=== PATIENT | male | born 1945 | race Caucasian/White ===

== ENCOUNTER 2020-06-11 03:24 | Inpatient (IN) ==
[2020-06-11] MEDS ORDERED: MIDAZOLAM HCL 5 MG/ML 1 ML VIAL IV STA (04:03)
[2020-06-11] MEDS ORDERED: MIDAZOLAM HCL 1 MG/ML 2ML VIAL ONE ×3 (04:09→09:42)
--- NOTE | 2020-06-11 04:12 | Emergency Department Note ---
Impression & Plan Cauda equina syndrome ED Provider Note NAME: JUSTINE PARRISH AGE: 74 SEX: M ARRIVES VIA: Walk-In INFORMANT: Patient ED PROVIDER(S): Evi Bateman DO CHIEF COMPLAINT: Low back pain PLAN: Disposition: Admitted to the hospital by Dr. Engle to go to the OR Condition: Stable MEDICAL DECISION MAKING: This is an 74-year-old male who presents to the emergency department with low back pain and lower extremity weakness and numbness. MRI of the lumbar spine shows significant disc extrusion at L2-3 with findings concerning for cauda equina syndrome. The case was discussed with Dr. Engle and he will take the patient to the OR emergently. Triage Nursing notes reviewed and agree them. Vital Signs: reviewed and remarkable for hypertension Differential diagnosis: Acute disc herniation, cauda equina syndrome, central cord syndrome ER treatment provided: IV Versed x2, IV Toradol, IV Decadron Diagnostics interpreted by me: ECG: Normal sinus rhythm at [address] segment elevation or signs of ischemia. There was no ectopy Laboratory studies: See below Imaging studies: As per stat rad MRI L-spine: No acute fracture. Multilevel degenerative changes. The conus terminates at T12-L1. No abnormal c ord signal. Apparent central L2-3 disc extrusion with severe L2-3 central canal stenosis, complete effacement of the CSF and compression upon the cauda equina. Increased signal at the L3-L4 discs space with mild endplate irregularity. Unable to exclude discitis in the appropriate clinical setting. Mild L3-4 central canal stenosis HPI: 74/M arrives for evaluation of low back pain and lower extremity weakness. The patient has been having increasing low back pain for the past 3 or 4 weeks. He saw his PCP in [facility] last week and they prescribed hydrocodone. The patient is becoming more concerned because he describes that the backs of his legs, buttocks and toes have become desensitized over the past 2 weeks and he now has extreme weakness in his legs to the point that they give out after standing for just a short period of time. ROS: See above HPI for pertinent positives & negatives. A total of 10 systems reviewed and were otherwise negative. PAST MEDICAL HISTORY:See Below PAST SURGICAL HISTORY:See Below FAMILY HISTORY:See Below SOCIAL HISTORY:See Below HOME MEDICATIONS:See list ALLERGIES:None VITALS:See Below PHYSICAL EXAMINATION: HEENT: Head - normocephalic and atraumatic Pupils are equal, round, and reactive to light. Extraocular eye muscles are intact, and sclera are anicteric. Nose - moist nasal mucosa without discharge. Mouth - moist buccal mucosa. Oropharynx is nonerythematous and there is no tonsillar exudate or edema noted. Neck: Supple; no cervical lymphadenopathy or nuchal rigidity Heart: Regular rate and rhythm. There is a normal S1 and S2 with no murmurs, clicks, or gallops appreciated. Lungs: Clear to auscultation bilaterally with no wheezes, rales, or rhonchi. Abdomen: Soft, completely nontender, nondistended, with good bowel sounds. There are no palpable pulsatile masses or hepatosplenomegaly. There is no guarding, rigidity, or rebound noted. Extremities: No evidence of cyanosis, clubbing, or edema. There are easily palpable peripheral pulses. Skin: warm and dry with good turgor and no rashes. Neuro: The patient has extreme weakness with dorsiflexion of his toes with the right being greater than the left. He has 2/5 muscle strength with flexion at the hips. He has absent patellar reflexes in the right knee with normal 2/4 patellar reflexes in the left knee. Back: Pain with palpation around the L2 paraspinous muscles bilaterally ED COURSE: Times/Reassessments: 0350: The patient was evaluated in room C 12. A complete history and physical was performed. An IV lock was initiated and the patient was given 2 mg of IV Versed in an effort to sedate the patient in preparation for MRI of the lumbar spine. 0420: The patient was given 30 mg of IV Toradol for pain. He still feels somewhat anxious about the MRI. He was given 1 mg of additional IV Versed and will go for the MRI of the lumbar spine. 0555: The patient is resting comfortably at this time upon returning from MRI. He states that he was able to relax during the scan. The patient was given the results of the MRI. I will discussed the case with Dr. Engle. Patient was given a dose of IV Decadron. Evi Bateman DO Past Med/Surg History Medical History Cauda equina syndrome CKD (chronic kidney disease), stage III HTN (hypertension) Spontaneous pneumothorax Surgical History History of colonoscopy History of decompression of ulnar nerve History of tonsillectomy Family History Mother Cancer Social History (Updated 06/11/20 @ 15:57 by Abena Marsh PA-C) Smoking Status: Never smoker Do You Dip or Chew Tobacco: No; Hx Alcohol Use: Yes Alcohol type: wine Alcohol Intake Frequency: 2-3 x/Week Alcohol Intake Frequency Comment: 3-4 -4oz glasses weekly Hx Substance Use: No Preferred Language: [place] Driver Required: No Beliefs That Will Affect Care: None Current Living Situation: Spouse Feels Safe at Home: Yes Safety Concerns: Feels Safe At This Time Assistive Devices: None Allergies Allergies Allergy/AdvReac Type Severity Reaction Status Date / Time No Known Allergies Allergy Unknown Verified 06/11/20 03:55 Home Meds Home Medications Medication Instructions Recorded Confirmed hydrocodone-acetaminophen 1 tab PO Q6 PRN 06/11/20 06/11/20 tramadol 50 mg PO Q8 PRN 06/11/20 06/11/20 Previous Rx's Medication Instructions Recorded oxycodone 5 mg PO Q6H PRN #20 tab 06/11/20 tramadol 50 mg PO Q6H PRN #20 tab 06/11/20 Results & Data (ED) Vital Signs Vital Signs - 24 hr 06/11/20 05:24 06/11/20 07:22 06/11/20 08:19 Temperature 36.8 C Temperature Source Oral Pulse Rate [Apical] Pulse Rate [Finger] 80 74 76 Pulse Rhythm [Apical] Pulse Rhythm [Finger] Regular Pulse Strength [Finger] Normal Respiratory Rate 16 18 18 Respiratory Effort / Characteristics Non-Labored Spontaneous Non-Labored Spontaneous Respiratory Depth Normal Normal Normal Respiratory Pattern Regular Regular Blood Pressure [Left Arm] Blood Pressure [Right Arm] 152/90 H 161/95 H 185/99 H Blood Pressure Mean [Left Arm] Blood Pressure Mean [Right Arm] 110 117 127 Blood Pressure Position [Left Arm] Blood Pressure Position [Right Arm] Lying Sitting Pulse Oximetry 97 97 97 Oxygen Delivery Method Room Air Room Air Room Air Oxygen Flow Rate 06/11/20 08:25 06/11/20 12:59 Temperature 36.7 C Temperature Source Temporal Artery Scan Pulse Rate [Apical] 100 H Pulse Rate [Finger] Pulse Rhythm [Apical] Regular Pulse Rhythm [Finger] Pulse Strength [Finger] Respiratory Rate 12 Respiratory Effort / Characteristics Non-Labored Spontaneous Respiratory Depth Normal Respiratory Pattern Regular Blood Pressure [Left Arm] 167/82 H Blood Pressure [Right Arm] Blood Pressure Mean [Left Arm] 110 Blood Pressure Mean [Right Arm] Blood Pressure Position [Left Arm] Lying Blood Pressure Position [Right Arm] Pulse Oximetry 100 Oxygen Delivery Method Room Air Oxymask Oxygen Flow Rate 8 Laboratory Data Result diagrams: 06/11/20 17:33 06/11/20 17:33 Lab Results 06/11/20 06/11/20 06/11/20 Range/Units 07:57 07:57 08:05 WBC 6.09 (4.8-10.8) K/uL RBC 4.88 (4.7-6.1) M/uL Hgb 14.2 (14.0-18.0) g/dL Hct 42.3 (42-52) % MCV 86.7 (80-100) fL MCH 29.1 (25-34) pg MCHC 33.6 (32-36) g/dL RDW Std Deviation 41.0 (36.4-46.3) fL RDW Coeff of Connor 12.9 (11.5-14.5) % Plt Count 177 (130-400) K/uL MPV 9.8 (7.4-10.4) fL Immature Gran % (Auto) 0.3 % Neut % (Auto) 66.7 % Lymph % (Auto) 21.5 % Yancey % (Auto) 10.0 % Eos % (Auto) 1.3 % Baso % (Auto) 0.2 % Neut # (Auto) 4.06 (1.4-6.5) K/uL Lymph # (Auto) 1.31 (1.2-3.4) K/uL Yancey # (Auto) 0.61 H (0.11-0.59) K/uL Eos # (Auto) 0.08 (0-0.5) K/uL Baso # (Auto) 0.01 (0-0.2) K/uL Immature Gran # (Auto) 0.02 (0.00-0.02) K/uL Sodium 142 (136-145) mmol/L Potassium 4.2 (3.5-5.1) mmol/L Chloride 107 (98-107) mmol/L Carbon Dioxide 31 (21-32) mmol/L Anion Gap 5.0 (3-11) BUN 15 (7-18) mg/dl Creatinine 1.17 (0.6-1.4) mg/dl Est Cr Clr Drug Dosing 65.4 ml/min Est GFR ( Amer) 71.3 Est GFR (Non-Af Amer) 61.5 Fasting Glucose 95 (70-99) mg/dl Calcium 9.4 (8.5-10.1) mg/dl SARS-CoV-2 Ag (Rapid) Negative (Negative) Administered Medications Polyethylene Glycol (Polyethylene (Miralax) 17 Gm Pack) 17 gm PO Q6 SHASHA Stop: 07/12/20 05:59 Last Admin: 06/12/20 03:07 Dose: 17 gm Documented by: [id number] Senna/Docusate Sodium (Docusate Sodium/Senna 50/8.6mg Tab) 2 tab PO HS SHASHA Stop: 07/11/20 20:59 Last Admin: 06/11/20 21:02 Dose: Not Given Documented by: [id number] Discontinued Medications Bacitracin (Bacitracin Inj 50,000 Unit Vial) Confirm Administered Dose 50,000 units .ROUTE .STK-MED ONE Stop: 06/11/20 10:40 Last Admin: 06/11/20 12:24 Dose: 50,000 units Documented by: [id number] Bupivacaine HCl/Epinephrine Bitart (Bupivacaine/Epinephrine 0.5% Mpf 1:200,000 30 Ml Vial) Confirm Administered Dose 30 ml .ROUTE .STK-MED ONE Stop: 06/11/20 10:40 Last Admin: 06/11/20 11:17 Dose: 15 ml Documented by: [id number] Dexamethasone (Dexamethasone Sod Inj 10 Mg/Ml Vial) 10 mg IV NOW ONE Stop: 06/11/20 07:15 Last Admin: 06/11/20 07:20 Dose: 10 mg Documented by: [id number] Cefazolin Sodium (Ancef 2000mg) 2,000 mg in 15 mls @ 3.75 mls/min IV PREOP ONE Stop: 06/11/20 10:36 Last Admin: 06/11/20 11:02 Dose: 3.75 mls/min Documented by: [id number] Cefazolin Sodium (Ancef 2000mg) 2,000 mg in 15 mls @ 3.75 mls/min IV Q8H [facility]; Protocol Stop: 06/12/20 03:03 Last Admin: 06/12/20 03:06 Dose: 3.75 mls/min Documented by: [id number] Admin: 06/11/20 19:19 Dose: 3.75 mls/min Documented by: [id number] Lactated Ringer's (Lr) 1,000 mls @ 150 mls/hr IV .Q6H40M SHASHA Stop: 07/11/20 15:03 Last Infusion: 06/12/20 04:14 Dose: 0 mls/hr Documented by: [id number] Admin: 06/11/20 23:31 Dose: 150 mls/hr Documented by: [id number] Infusion: 06/11/20 22:54 Dose: 0 mls/hr Documented by: [id number] Infusion: 06/11/20 22:19 Dose: 150 mls/hr Documented by: [id number] Admin: 06/11/20 16:14 Dose: 150 mls/hr Documented by: [id number] Sodium Chloride (Nss 1000ml) 500 mls @ 999 mls/hr IV .Q31M ONE Stop: 06/11/20 19:03 Last Infusion: 06/11/20 20:13 Dose: 0 mls/hr Documented by: [id number] Admin: 06/11/20 19:18 Dose: 999 mls/hr Documented by: [id number] Ketorolac Tromethamine (Ketorolac 30 Mg/Ml Vial) 30 mg IV NOW ONE Stop: 06/11/20 04:27 Last Admin: 06/11/20 04:31 Dose: 30 mg Documented by: [id number] Ketorolac Tromethamine (Ketorolac Tromethamine 15 Mg/Ml Vial) 15 mg IV Q6H SHASHA Stop: 06/12/20 09:05 Last Admin: 06/11/20 16:14 Dose: 15 mg Documented by: [id number] Midazolam HCl (Midazolam Hcl 5 Mg/Ml 1 Ml Vial) 2 mg IV NOW STA Stop: 06/11/20 04:04 Last Admin: 06/11/20 06:01 Dose: Not Given Documented by: [id number] Midazolam HCl (Midazolam Hcl 1 Mg/Ml 2ml Vial) Confirm Administered Dose 2 mg .ROUTE .STK-MED ONE Stop: 06/11/20 04:10 Last Admin: 06/11/20 04:31 Dose: 2 mg Documented by: [id number] Midazolam HCl (Midazolam Hcl 1 Mg/Ml 2ml Vial) Confirm Administered Dose 2 mg .ROUTE .STK-MED ONE Stop: 06/11/20 04:46 Last Increment: 06/11/20 04:46 Dose: 1 mg Documented by: [id number] Miscellaneous ( Floseal Hemostatic Matrix 10ml) 10 ml TOP ONCE ONE Stop: 06/11/20 12:25 Last Admin: 06/11/20 12:28 Dose: 19 ml Documented by: [id number] Discharge Plan Visit Data Chief Complaint: Back Injury/Pain Stated Complaint: BACK PAIN ED Provider: Evi Bateman Discharge Problem: Cauda equina syndrome Patient Disposition: Still a Patient Discharge Instructions Interventions: ED Discharge Assessment Last Done: 06/11/20 08:25
[2020-06-11] MEDS ORDERED: KETOROLAC 30 MG/ML VIAL IV ONE (04:26)
[2020-06-11] MEDS ORDERED: DEXAMETHASONE SOD INJ 10 MG/ML VIAL IV ONE (07:14)
--- NOTE | 2020-06-11 07:58 | History & Physical Report ---
Date of Service June 11, 2020 Assessment & Plan (1) Cauda equina syndrome not affecting bladder: Admission and Anticipated Discharge Date Admission Date: At this time the patient has severe neural compression at the L2-L3 level. He has not lost control of his bowel or bladder. Nevertheless he has dysfunction of the bilateral lower extremities and inability to ambulate. He does have perineal and upper extremity leg numbness. Subsequently recommending emergent decompression and fusion of the L2-L3 level. Risk benefits pros cons and alternatives were outlined in detail. Patient understands and agrees. We will try to surgery performed as soon as possible. History of Present Illness Chief Complaint: Back bilateral leg pain and weakness Primary Care Provider: Manjeet Crisostomo MD This is a 74-year-old male that presents with marked decline in status over the past 24 hours. He describes a history of back pain couple weeks ago had undergone some oral medications and hydrocodone to control symptoms but over the past 24 hours had a marked decline in status with the inability to ambulate. He had numbness extending down the buttocks thighs to his feet. Involve the perineal area. He was unable to ambulate and came to the emergency room. MRI obtained emergently demonstrates evidence of vascular discoloration at the level L2-L3. Of note for imaging purposes and calling L5 L5 is L5 is partially sacralized. This does demonstrate severe canal compromise. Allergies Allergy/AdvReac Type Severity Reaction Status Date / Time No Known Allergies Allergy Unknown Verified 06/11/20 03:55 Home Medications Medication Instructions Recorded Confirmed Type hydrocodone-acetaminophen 1 tab PO Q6 PRN 06/11/20 06/11/20 History tramadol 50 mg PO Q8 PRN 06/11/20 06/11/20 History Past Med/Surg History Social History (System 07/16/18 @ 12:31 by Giana Castillo) Smoking Status: Never smoker Feels Safe at Home: Yes Physical Exam Physical Exam: On exam patient has marked deficits with bilateral dorsiflexion extensor hallucis longus. His plantar flexion appears to be intact at 5 or 5. Quadriceps are 4+ bilaterally. He has sensory deficits to the proximal thighs and perineal area. He is severe tension signs straight leg raising bilaterally. He is unable to stand and ambulate. Results & Data ([facility]) Vital Signs (Past 12 Hours) Vital Signs Temp Pulse Pulse Resp BP BP Pulse Ox 06/11/20 07:22 74 18 161/95 H 97 06/11/20 05:24 80 16 152/90 H 97 06/11/20 03:27 36.8 C 88 16 197/97 H 97
--- NOTE | 2020-06-11 08:00 | Magnetic Resonance Report ---
MRI OF THE LUMBAR SPINE WITHOUT IV CONTRAST CLINICAL HISTORY: Lower extremity weakness. COMPARISON STUDY: No priors. TECHNIQUE: MRI of the lumbar spine is performed utilizing various T1 and T2-weighted sequences in the axial and sagittal planes. IV contrast was not administered for this examination. FINDINGS: Lumbar spine: A transitional lumbosacral body will be labeled S1 for the purposes of this examination . Marrow signal intensity is heterogeneous. Vertebral body height and alignment are maintained. There is straightening of the lumbar lordosis. The transverse and spinous processes appear intact. There i s no evidence of spondylolysis. Chronic degenerative endplate change is seen at all lumbar levels bet ween L3-L4 and L5-S1. Mild endplate edema is noted at L4-L5. A small hemangioma is noted in the body of L1. A 12 mm bone island is seen within the left aspect of L3. No destructive bony lesion is seen. Intervertebral discs: Degenerative disc desiccation and loss of height is seen throughout the lumbar spine. Loss of height is moderate at L4-L5 and L5-S1. Spinal cord: The visualized spinal cord is normal in morphology and signal intensity. The conus medul maya terminates at the level of L2. L1-L2: Unremarkable. L2-L3: Unremarkable. L3-L4: There is a large posterior disc herniation. This causes severe central canal stenosis at this level with a minimum AP diameter of 2 mm. There is tethering of the nerve roots of the cauda equina a t this level. There is mild bilateral subarticular stenosis. The neural foramina appear clear. L4-L5: There is broad-based posterior disc bulge eccentric to the right. In conjunction with hypertro phy of the ligamentum flavum there is mild acquired compromise of the central canal at this level wit h a minimum AP diameter of 9 mm. There is right greater than left subarticular stenosis, with probabl e impingement on the exiting bilateral L4 nerve roots. Disc bulge also abuts the transiting nerve ana ts. In conjunction with facet arthropathy there is moderate to severe bilateral neural foraminal sten osis. There are bilateral facet joint effusions. L5-S1: There is a small posterior disc bulge. The central canal is clear. There is bilateral subartic ular stenosis, the disc bulge abuts the exiting bilateral L5 nerve roots and the transiting right S1 nerve root. In conjunction with facet arthropathy there is mild bilateral neural foraminal stenosis. Sacrum: The visualized sacrum is normal in morphology and signal intensity. Soft tissues: A 7 mm cyst is identified along the left lamina of S2. This is seen on axial image #36. The paraspinous soft tissues are otherwise within normal limits. The partially imaged retroperitonea l structures are grossly unremarkable but incompletely evaluated. IMPRESSION: 1. A large disc herniation at L3-L4 causes severe central canal stenosis at this level with tethering of the nerve roots of the cauda equina. 2. Spondylotic change at additional levels as detailed above. See discussion for detailed level by le enrique analysis. 3. No destructive bony process is identified. 4. Degenerative disc disease as above. Dictated: 06/11/2020 7:27 AM Transcribed: 06/11/2020 7:41 AM Mraitza [id number] [email or web address] Electronically signed by: Jim Ricci M.D. 06/11/2020 7:59 AM
[2020-06-11 09:24] LABS: Basophils # (auto) 0.01 K/uL (0-0.2); Basophils % (auto) 0.2 %; Eosinophils # (auto) 0.08 K/uL (0-0.5); Eosinophils % (auto) 1.3 %; Hematocrit (blood only) 42.3 % (42-52); Hemoglobin 14.2 g/dL (14.0-18.0); Immature Granulocytes # (auto) 0.02 K/uL (0.00-0.02); Immature Granulocytes % (auto) 0.3 %; Lymphocytes # (auto) 1.31 K/uL (1.2-3.4); Lymphocytes % (auto) 21.5 %; Mean Corpuscular Hemoglobin 29.1 pg (25-34); Mean Corpuscular Hgb Conc 33.6 g/dL (32-36); Mean Corpuscular Volume 86.7 fL (80-100); Mean Platelet Volume 9.8 fL (7.4-10.4); Monocytes # (auto) 0.61 K/uL (0.11-0.59); Neutrophils # (auto) 4.06 K/uL (1.4-6.5); Neutrophils % (auto) 66.7 %; Platelet Count 177 K/uL (130-400); RDW Coefficient of Variation 12.9 % (11.5-14.5); Red Blood Count 4.88 M/uL (4.7-6.1); White Blood Count 6.09 K/uL (4.8-10.8)
--- NOTE | 2020-06-11 09:27 | Anesthesiology Consultation ---
Date of Service June 11, 2020 Assessment & Plan (1) Encounter for pre-operative examination: Chart Review Chart Review: Acceptable Risk for Surgery and Patient NOT seen in Pre Admission Testing Consults Requested none ASA [id number] Proposed Anesthesia Anesthesia Type: General Risk / Benefits Reviewed With: PT / POA / Parent / Guardian, Accepts Plan and Informed Consent Obtained History Surgery Operation Date: 06/11/20 14:35 Proposed Procedures p Lumbar Decompression Fusion L2-L3 - Rodney Engle DO Height/Weight Height: 6 ft 2 in Weight: 90.718 kg Allergies Allergy/AdvReac Type Severity Reaction Status Date / Time No Known Allergies Allergy Unknown Verified 06/11/20 03:55 Medications Home Medications Medication Instructions Recorded Confirmed Last Taken hydrocodone-acetaminophen 1 tab PO Q6 PRN 06/11/20 06/11/20 Unknown tramadol 50 mg PO Q8 PRN 06/11/20 06/11/20 Unknown NPO Date Last Intake of Fluids: 06/10/20 Time Last Intake of Fluids: 17:00 Date Last Intake of Solids: 06/10/20 Time Last Intake of Solids: 11:30 Past Medical History Medical History (Updated 06/11/20 @ 09:34 by Ivana Hutson MD) Cauda equina syndrome Exercise / Class Metabolic Activity II 4-5 Yardwork/Stairs/Walk up hill Negative for chest pain or shortness of breath. Past Surgical History Surgical History (Updated 06/11/20 @ 09:29 by Ivana Hutson MD) History of decompression of ulnar nerve History of tonsillectomy Past Anesthesia History No Hx of Anesthesia Complications History of PONV No Hx of PONV Social History Smoking Status: Never smoker Do You Dip or Chew Tobacco: No Hx Alcohol Use: Yes Alcohol type: wine alcohol intake frequency: a few times a week Hx Substance Use: No Review of Systems Patient denies active symptoms of GERD. Positive for bilateral leg weakness and alterations in sensation of toes Physical Exam Vital Signs Last Vital Signs Temp 36.8 C 06/11/20 08:19 Pulse 76 06/11/20 08:19 Resp 18 06/11/20 08:19 BP 185/99 H 06/11/20 08:19 Pulse Ox 97 06/11/20 08:19 Constitutional not obese ENMT Mouth: + dentures and + edentulous; no TMJ abnormality and oral opening not small Thyromental Distance: > or= 3.5 Finger Breadths Mallampati Class: III Neck normal visual inspection; neck extension not limited Respiratory normal respiratory effort Auscultation: lungs clear to auscultation bilaterally Cardiovascular Rate/Rhythm: regular rate and regular rhythm Heart Sounds: no murmur Neurologic moves all extremities (See ROS) Psychiatric Orientation: alert and oriented x 3 Testing Laboratory Results 06/11/20 07:57 06/11/20 07:57 Electrocardiogram Date: 07/14/20 Findings: + NSR @ (66) cannot rule out inferior infarct, age undetermined
[2020-06-11 09:39] LABS: Calcium 9.4 mg/dl (8.5-10.1); Creatinine Clr Calc Pharmacy 65.4 ml/min; Est GFR (African American) 71.3; Est GFR (Non-African American) 61.5; Potassium 4.2 mmol/L (3.5-5.1)
[2020-06-11] MEDS ORDERED: ONDANSETRON INJ 2 MG/ML 2 ML VIAL ONE (09:41)
[2020-06-11] MEDS ORDERED: DEXAMETHASONE SOD INJ 4 MG/ML VIAL ONE (09:41)
[2020-06-11] MEDS ORDERED: NEOSTIGMINE METHYLSULFATE 1 MG/ML 10ML VIAL ONE (09:41)
[2020-06-11] MEDS ORDERED: GLYCOPYRROLATE 0.2 MG/ML VIAL ONE (09:41)
[2020-06-11] MEDS ORDERED: LIDOCAINE HCL 2% 2 ML VIAL/AMP(20MG/ML) INFIL ONE (09:41)
[2020-06-11] MEDS ORDERED: PROPOFOL IV EMULSION 10 MG/ML 20 ML VIAL IV ONE (09:41)
[2020-06-11] MEDS ORDERED: fentaNYL citrate 100 MCG/2 ML VIAL ONE ×2 (09:42→12:15)
[2020-06-11] MEDS ORDERED: HYDROmorphone INJ 2 MG/ML SYR/VIAL IV PRN (09:45)
[2020-06-11] MEDS ORDERED: ATROPINE SULFATE 0.1 MG/ML 10ML SYR IV PRN (09:45)
[2020-06-11] MEDS ORDERED: ePHEDrine sulfate 50 MG/ML AMP IV PRN (09:45)
[2020-06-11] MEDS ORDERED: fentaNYL citrate 100 MCG/2 ML VIAL IV PRN (09:45)
[2020-06-11] MEDS ORDERED: ceFAZolin 2000MG 2,000 MG/15 ML SYR IV ONE (10:33)
[2020-06-11] MEDS ORDERED: BACITRACIN INJ 50,000 UNIT VIAL ONE (10:39)
[2020-06-11] MEDS ORDERED: BUPIVACAINE/EPINEPHRINE 0.5% MPF 1:200,000 30 ML VIAL ONE (10:39)
[2020-06-11] MEDS ORDERED: ROCURONIUM BROMIDE 10 MG/ML 5 ML VIAL IV ONE (11:24)
[2020-06-11] MEDS ORDERED: FLOSEAL HEMOSTATIC MATRIX 10ML TOP ONE (12:24)
--- NOTE | 2020-06-11 12:38 | Operative Report ---
Post Operative Report Pre & Post Diagnosis Operation Date: 06/11/20 14:35 Pre-Op Diagnosis: Cauda equina syndrome not affecting bladder Post-Op Diagnosis: Cauda equina syndrome not affecting bladder I identified the patient and participated in the time-out.: Yes Procedure Operation Date: 06/11/20 14:35 Actual Procedures #1 lumbar decompression with bilateral medial facetectomies and foraminotomies L2-3 L3-4. #2 posterior spinal fusion L3-4. #3 placement posterior instrumentation L3-4 per #4 interbody fusion L3-4. #5 placement peek cage 13 x 26 mm at L3-4. #6 placement locally harvested morselized autograft in the posterior lateral gutters. #7 placement infuse collagen sponge bone master graft in the posterior lateral gutters and ostial amp interbody space. Surgeon Rodney Engle, DO Track Service Person Jimmy Parker Estimated Blood Loss 200 Findings Consistent with Post-Op Diagnosis Specimens None Indications This is a 74-year-old male who presents with the above-mentioned diagnosis and subsequently underwent emergent decompression and fusion. For nomenclature sake for the operative report I am calling the decompressed level L3-L4 noting he does have a sacralized segment of L5. Description of Procedure Patient was met with identified informed consent obtained. Patient was then taken to the operative suite underwent a patient placed in the prone position the [place] table top Jesus frame. All bony prominences well-padded eyes inspected to ensure no external pressure placed upon them. This point the lumbar spine was prepped and draped in normal sterile fashion. Sharp dissection with the assistance pericardial performed down to and exposing the lamina and transverse processes of L3 and L4 bilaterally. From a caudal cephalad fashion complete laminectomy of L3 partial negative L2 was performed including bilateral medial facetectomies and foraminotomies addressing all bony stenosis. I then removed several massive fragments of disc material that had migrated caudally in the canal. Pedicle screws were then placed in L3 and L4 bilaterally with assistance of fluoroscopy and the proper sized traci placed. By the transforaminal portion of right a complete discectomy of L3-L4 was performed endplates curetted to subcortical any bone and a 13 x 26 mm peek cage filled with osteobone graft tapped in position. The rods were then locked in final position bilaterally. Transverse processes of L3 and L4 were burred to subcortical bleeding bone. Infuse collagen sponge master graft local autograft was placed in the posterior gutters. 15 round COOKIE drain inserted. The incision was then closed with 1 Vicryl the fascia 2-0 Vicryl subcutaneously and 4 Monocryl for final skin closure. Steri-Strip sterile dressings placed. Patient will continue PACU stable condition. Please note spinal cord monitoring was utilized that the procedure no changes noted. Lastly Jimmy record was present at the entire surgery involved the patient positioning complex portions of the surgery and final skin closure. I attest to the content of the Intraoperative Record and any orders documented therein. Any exceptions are noted below.
--- NOTE | 2020-06-11 12:46 | Fluoroscopy Report ---
FL lumbar spine 2-3V CLINICAL HISTORY: L2-3 DECOMPRESSION/FUSION/INTERBODY COMPARISON STUDY: FLUOROSCOPY TIME: 19.2 seconds. NUMBER OF FLUOROSCOPIC IMAGES: 3 FINDINGS: 3 spot fluoroscopic spot images reveal postsurgical changes of a reported L2-3 discectomy, interbody fusion, and posterior pedicle screw fixation. Due to the limited [id number], accurate nu mbering is not possible IMPRESSION: Intraoperative fluoroscopic spot images revealing postsurgical changes as described abov e ACT 112: Negative or not required by law. Electronically signed by: Allen Price M.D. 06/11/2020 12:45 PM
--- NOTE | 2020-06-11 12:54 | Electrocardiogram Report ---
Test Reason : Blood Pressure : / mmHG Vent. Rate : 066 BPM Atrial Rate : 066 BPM P-R Int : 178 ms QRS Dur : 088 ms QT Int : 382 ms P-R-T Axes : 068 006 054 degrees QTc Int : 400 ms Poor data quality, interpretation may be adversely affected Normal sinus rhythm Cannot rule out Inferior infarct , age undetermined Abnormal ECG When compared with ECG of 20-NOV-2002 00:49, No significant change was found Confirmed by Trent Beal ([id number]) on 06/11/2020 12:54:31 PM Referred By: REFERRED SELF Confirmed By:Gilbert Beal
--- NOTE | 2020-06-11 14:47 | Anesthesiology Progress Note ---
Date of Service June 11, 2020 Anesthesia Post Procedure Vital Signs Vital Signs: Temp Pulse Pulse Pulse Resp BP BP 06/11/20 14:30 120 H 18 155/98 H 06/11/20 14:15 118 H 20 152/85 H 06/11/20 14:05 36.5 C 114 H 16 174/93 H 06/11/20 13:55 115 H 16 173/84 H 06/11/20 13:45 109 H 16 161/92 H 06/11/20 13:35 112 H 16 169/80 H 06/11/20 13:25 106 H 12 162/88 H 06/11/20 13:15 98 H 12 154/68 H 06/11/20 13:05 100 H 14 157/79 H 06/11/20 12:59 36.7 C 100 H 12 167/82 H 06/11/20 08:19 36.8 C 76 18 06/11/20 07:22 74 18 06/11/20 05:24 80 16 06/11/20 03:27 36.8 C 88 16 197/97 H BP Pulse Ox 06/11/20 14:30 95 06/11/20 14:15 95 06/11/20 14:05 96 06/11/20 13:55 95 06/11/20 13:45 95 06/11/20 13:35 94 06/11/20 13:25 96 06/11/20 13:15 100 06/11/20 13:05 100 06/11/20 12:59 100 06/11/20 08:19 185/99 H 97 06/11/20 07:22 161/95 H 97 06/11/20 05:24 152/90 H 97 06/11/20 03:27 97 Transfer of Care Handoff Completed per policy Notes Mental Status: alert / awake / arousable and participated in evaluation Patient Amnestic to Procedure: Yes Nausea / Vomiting: adequately controlled Pain: adequately controlled Airway Patency, RR, SpO2: stable & adequate BP & HR: stable & adequate Hydration State: stable & adequate Anesthetic Complications: no major complications apparent and Pt Satisfied with anesthetic care
[2020-06-11] MEDS ORDERED: ACETAMINOPHEN 500 MG TAB PO PRN (15:04)
[2020-06-11] MEDS ORDERED: traMADol HCL 50 MG TABLET PO PRN (15:04)
[2020-06-11] MEDS ORDERED: DO NOT ADMINISTER PNEUMOCOCCAL VACCINE PRN (15:04)
[2020-06-11] MEDS ORDERED: diphenhydrAMINE Capsule 25 MG CAP PO PRN (15:04)
[2020-06-11] MEDS ORDERED: KETOROLAC TROMETHAMINE 15 MG/ML VIAL IV SCH (15:04)
[2020-06-11] MEDS ORDERED: hydrOXYzine HCl 25 MG TAB PO PRN (15:04)
[2020-06-11] MEDS ORDERED: HYDROmorphone INJ 0.5 MG/0.5 ML SYR IV PRN (15:04)
[2020-06-11] MEDS ORDERED: ONDANSETRON 4 MG OD TAB PO PRN (15:04)
[2020-06-11] MEDS ORDERED: METOCLOPRAMIDE HCL INJ 5 MG/ML 2 ML VIAL IV PRN (15:04)
[2020-06-11] MEDS ORDERED: MAGNESIUM HYDROXIDE SUSP 30 ML UDC PO PRN (15:04)
[2020-06-11] MEDS ORDERED: LORazepam 0.5 MG/1 ML VIAL IV PRN (15:04)
[2020-06-11] MEDS ORDERED: PROMETHAZINE HCL 12.5 MG in SODIUM CHLORIDE 0.9% 50 ML IV PRN (15:04)
[2020-06-11] MEDS ORDERED: LORazepam 0.5 MG TAB PO PRN (15:04)
[2020-06-11] MEDS ORDERED: HYDROmorphone INJ 1 MG/ML SYRINGE IV PRN (15:04)
[2020-06-11] MEDS ORDERED: ACETAMINOPHEN 1,000 MG/100 ML VIAL IV PRN (15:04)
[2020-06-11] MEDS ORDERED: FAMOTIDINE 20 MG TAB PO PRN (15:04)
[2020-06-11] MEDS ORDERED: SOD PHOSPHATE/SOD BIPHOSPHATE ENEMA 132 ML BTL PR PRN (15:04)
[2020-06-11] MEDS ORDERED: ONDANSETRON INJ 2 MG/ML 2 ML VIAL IV PRN (15:04)
[2020-06-11] MEDS ORDERED: bisacodyL 10 MG SUPP PR PRN (15:04)
[2020-06-11] MEDS ORDERED: DO NOT ADMINISTER FLU VACCINE PRN (15:04)
[2020-06-11] MEDS ORDERED: NALOXONE HCL 0.4 MG/1 ML VIAL/CARP IV PRN (15:04)
[2020-06-11] MEDS ORDERED: ALUMINUM/MAGNESIUM SUSP 30 ML UDC PO PRN (15:04)
--- NOTE | 2020-06-11 15:27 | Consultation ---
Date of Consultation June 11, 2020 Assessment & Plan (1) Lumbar disc herniation: (2) Cauda equina syndrome not affecting bladder: Large disc herniation L3-4 with severe central canal stenosis tethering of the roots of the cauda equina S/p "Actual Procedures: #1 lumbar decompression with bilateral medial facetectomies and foraminotomies L2-3 L3-4. #2 posterior spinal fusion L3-4. #3 placement posterior instrumentation L3-4 per #4 interbody fusion L3-4. #5 placement peek cage 13 x 26 mm at L3-4. #6 placement locally harvested morselized autograft in the posterior lateral gutters. #7 placement infuse collagen sponge bone master graft in the posterior lateral gutters and ostial amp interbody space." tolerated procedure well EBL 200ml admitted to med/surg pain/wound management per ortho activity/therapy as directed by ortho incentive spirometry bladder scan q6h and pvr monitor h/h (3) Tachycardia with hypertension: Pt has been tachycardic since procedure currently asymptomatic bladder scan 420 - will straight cath monitor, IVF running 150/hr continue to monitor closely - if remains tachycardic will transfer to tele (4) HTN (hypertension): review of [facility] records show SBP 130s-170s consistently he does not take any oral anithypertensives as outpt expect pt to be modestly hypertensive post op, currently 161/92 will treat accordingly (5) CKD (chronic kidney disease), stage III: Baseline creatinine 1.3 BUN/creatinine 15/1.17 avoid nephrotoxic agents (6) DVT prophylaxis: SCD/TEDS Disposition: per primary Follow up: Dr. Crisostomo upon discharge Pt was seen and examined in collaboration with Dr. Harrison, please see addendum Starting 06/12/2020 pt will be under the care of Dr. Cuellar Thank you for this consultation. We will follow the patient with you during their hospital stay. You can reach a member of the [facility] Hospitalist Team 29/01 via pager @ [phone]. Supervising Physician Co-Signing Physician Notes Patient seen and examined by me, care coordinated with Abena Marsh PA-C, pls refer to her note above for further detail. Pt is a 74-year-old male with history of HTN, HLD, CKD stage III who presents with intractable back pain, weakness and inability to ambulate. He underwent MRI imaging lumbar spine which revealed Large disc herniation at L3-L4 causing severe central canal stenosis tethering of the nerve roots of the cauda equina. He was admitted by Dr. Engle and underwent successful lumbar decompression of L2-L4 with fusion of L3-L4. Currently he feels quite well, reports all his symptoms have resolved or significantly improved and pain has much improved as well. No more numbness in his LEs. No difficulty breathing or chest pain. Not voided since arriving to floor. Not passing gas or BM yet. Pt tachycardic after procedure into 110-120s after surgery. On admission ECG showed NSR w/ HR 66 and pt's HR has been in 70s prior to procedure. Heart sounds are regular. Lung sounds clear to auscultation bilaterally, without any wheezing rhonchi or crackles. Abdomen soft, nontender, nondistended. Srivastava catheter not placed. Patient is able to move extremities spontaneously and without difficulty. Skin is warm, dry, well-perfused. Asked nursing staff for bladder scan, found above 400 cc of urine, recommend to straight cath. Heart sounds are regular, seems as this is likely sinus tachycardia, secondary to procedure and possible urinary retention. We will continue to closely monitor. We will continue to monitor vital signs, and possible anemia post-op. Per patient, no history of arrhythmia, or A. fib. Patient does not take any medications at home however diagnosed with hypertension previously. If persistently tachycardic, will obtain ECG to confirm the rhythm. Meryl Harrison MD History of Present Illness Requesting Physician: Dr. 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 He underwent MRI imaging lumbar spine which revealed Large disc herniation at L3-L4 causing severe central canal stenosis tethering of the nerve roots of the cauda equina. He was admitted by Dr. Engle and underwent successful lumbar decompression of L2-L4 with fusion of L3-L4. He states he has been having low back pain for the past 3 to 4 weeks. Pain has been severe radiating down bilateral lower extremities with numbness and tingling. Pain progressively got worse as did weakness he was having difficulty just putting on pants. Postoperatively he feels much improved. "I feel like I can get up and run out of here." He denies any lower extremity tingling, saddle anesthesia, fever, chills, sweats, lightheadedness, dizziness, chest pain, shortness breath, palpitations, cough, hemoptysis, nausea, vomiting, abdominal pain. He denies any difficulty urinating or moving bowels the past 3 weeks. He denies any incontinence. He has not urinated since arriving on the floor. He is tolerating clear liquids and he is performing incentive spirometry. Nursing staff did make her team aware in regards to elevated blood pressure and pulse. Allergies Allergy/AdvReac Type Severity Reaction Status Date / Time No Known Allergies Allergy Unknown Verified 06/11/20 03:55 Home Medications Medication Instructions Recorded Confirmed Type hydrocodone-acetaminophen 1 tab PO Q6 PRN 06/11/20 06/11/20 History oxycodone 5 mg PO Q6H PRN #20 tab 06/11/20 Rx tramadol 50 mg PO Q6H PRN #20 tab 06/11/20 Rx tramadol 50 mg PO Q8 PRN 06/11/20 06/11/20 History Patient History Medical History Cauda equina syndrome CKD (chronic kidney disease), stage III HTN (hypertension) Spontaneous pneumothorax Surgical History History of colonoscopy History of decompression of ulnar nerve History of tonsillectomy Family History Mother Cancer Social History (Updated 06/11/20 @ 15:57 by Abena Marsh PA-C) Smoking Status: Never smoker Do You Dip or Chew Tobacco: No; Hx Alcohol Use: Yes Alcohol type: wine Alcohol Intake Frequency: 2-3 x/Week Alcohol Intake Frequency Comment: 3-4 -4oz glasses weekly Hx Substance Use: No Preferred Language: Pakistani Digital Sales Assistant Required: No Beliefs That Will Affect Care: None Current Living Situation: Spouse Feels Safe at Home: Yes Safety Concerns: Feels Safe At This Time Assistive Devices: None Review of Systems Review of Systems: All systems reviewed & are unremarkable except as noted in HPI & below Physical Exam Physical Exam: Constitutional: WD/WN, vitals as above, NAD, sitting up in bed, pleasant, conversing easily Head: Normocephalic, Atraumatic Eyes: PERRL, conjunctivae normal, anicteric sclerae ENMT: external ear and nose normal, oropharynx normal Neck: trachea midline, no thyromegaly normal visual inspection Respiratory: normal respiratory effort, lungs clear to auscultation, no wheeze, rales, rhonchi. Normal insp/exp effort, no accessory muscle use Cardiovascular: Tachycardic rate, regular rhythm, no murmur, no edema Vessels: no JVD or carotid bruit Chest: normal inspection of chest Abdomen: normal bowel sounds, soft, nontender, no hepatosplenomegaly Musculoskeletal: no cyanosis or clubbing, active ROM x 4 Skin: no rashes, warm and dry normal turgor Neurologic: PERRL, EOMI, accommodation nl, no face palsy, no dysarthria CN's II-XI intact bilaterally and moves all extremities Psychiatric: A+Ox3, euthymic affect Lymphatic: no cervical or axillary lymphadenopathy : deferred Results & Data ([facility]) Vital Signs (Past 12 Hours) Vital Signs Temp Pulse Pulse Pulse Resp BP BP 06/11/20 14:52 36.8 C 122 H 20 179/95 H 06/11/20 14:30 120 H 18 155/98 H 06/11/20 14:15 118 H 20 152/85 H 06/11/20 14:05 36.5 C 114 H 16 174/93 H 06/11/20 13:55 115 H 16 173/84 H 06/11/20 13:45 109 H 16 161/92 H 06/11/20 13:35 112 H 16 169/80 H 06/11/20 13:25 106 H 12 162/88 H 06/11/20 13:15 98 H 12 154/68 H 06/11/20 13:05 100 H 14 157/79 H 06/11/20 12:59 36.7 C 100 H 12 167/82 H 06/11/20 08:19 36.8 C 76 18 06/11/20 07:22 74 18 06/11/20 05:24 80 16 06/11/20 03:27 36.8 C 88 16 197/97 H BP Pulse Ox 06/11/20 14:52 97 06/11/20 14:30 95 06/11/20 14:15 95 06/11/20 14:05 96 06/11/20 13:55 95 06/11/20 13:45 95 06/11/20 13:35 94 06/11/20 13:25 96 06/11/20 13:15 100 06/11/20 13:05 100 06/11/20 12:59 100 06/11/20 08:19 185/99 H 97 06/11/20 07:22 161/95 H 97 06/11/20 05:24 152/90 H 97 06/11/20 03:27 97 Laboratory Results Short CBC 06/11/20 06/11/20 Range/Units 07:57 07:57 WBC 6.09 (4.8-10.8) K/uL Hgb 14.2 (14.0-18.0) g/dL Hct 42.3 (42-52) % Plt Count 177 (130-400) K/uL Creatinine 1.17 (0.6-1.4) mg/dl BMP 06/11/20 07:57 Sodium 142 Potassium 4.2 Chloride 107 Carbon Dioxide 31 BUN 15 Creatinine 1.17 Calcium 9.4 Diagnostic Findings MRI Lumbar Spine: IMPRESSION: 1. A large disc herniation at L3-L4 causes severe central canal stenosis at this level with tethering of the nerve roots of the cauda equina. 2. Spondylotic change at additional levels as detailed above. See discussion for detailed level by level analysis. 3. No destructive bony process is identified. 4. Degenerative disc disease as above. Lumbar spine Xray: IMPRESSION: Intraoperative fluoroscopic spot images revealing postsurgical ch anges as described above Medications Administered Discontinued Medications Bacitracin (Bacitracin Inj 50,000 Unit Vial) Confirm Administered Dose 50,000 units .ROUTE .STK-MED ONE Stop: 06/11/20 10:40 Last Admin: 06/11/20 12:24 Dose: 50,000 units Documented by: [id number] Bupivacaine HCl/Epinephrine Bitart (Bupivacaine/Epinephrine 0.5% Mpf 1:200,000 30 Ml Vial) Confirm Administered Dose 30 ml .ROUTE .STK-MED ONE Stop: 06/11/20 10:40 Last Admin: 06/11/20 11:17 Dose: 15 ml Documented by: [id number] Dexamethasone (Dexamethasone Sod Inj 10 Mg/Ml Vial) 10 mg IV NOW ONE Stop: 06/11/20 07:15 Last Admin: 06/11/20 07:20 Dose: 10 mg Documented by: [id number] Cefazolin Sodium (Ancef 2000mg) 2,000 mg in 15 mls @ 3.75 mls/min IV PREOP ONE Stop: 06/11/20 10:36 Last Admin: 06/11/20 11:02 Dose: 3.75 mls/min Documented by: [id number] Ketorolac Tromethamine (Ketorolac 30 Mg/Ml Vial) 30 mg IV NOW ONE Stop: 06/11/20 04:27 Last Admin: 06/11/20 04:31 Dose: 30 mg Documented by: [id number] Midazolam HCl (Midazolam Hcl 5 Mg/Ml 1 Ml Vial) 2 mg IV NOW STA Stop: 06/11/20 04:04 Last Admin: 06/11/20 06:01 Dose: Not Given Documented by: [id number] Midazolam HCl (Midazolam Hcl 1 Mg/Ml 2ml Vial) Confirm Administered Dose 2 mg .ROUTE .STK-MED ONE Stop: 06/11/20 04:10 Last Admin: 06/11/20 04:31 Dose: 2 mg Documented by: [id number] Midazolam HCl (Midazolam Hcl 1 Mg/Ml 2ml Vial) Confirm Administered Dose 2 mg .ROUTE .STK-MED ONE Stop: 06/11/20 04:46 Last Increment: 06/11/20 04:46 Dose: 1 mg Documented by: [id number] Miscellaneous ( Floseal Hemostatic Matrix 10ml) 10 ml TOP ONCE ONE Stop: 06/11/20 12:25 Last Admin: 06/11/20 12:28 Dose: 19 ml Documented by: [id number] ECG Rate (beats per minute): 66 Rhythm: normal sinus
[2020-06-11] MEDS: LACTATED RINGER'S 1,000 ML IV SCH ×2 (16:14→23:31)
[2020-06-11 17:43] LABS: Hematocrit (blood only) 41.7 % (42-52); Hemoglobin 14.1 g/dL (14.0-18.0); Mean Corpuscular Hemoglobin 29.1 pg (25-34); Mean Platelet Volume 9.5 fL (7.4-10.4); Platelet Count 182 K/uL (130-400); RDW Coefficient of Variation 12.9 % (11.5-14.5); RDW Standard Deviation 40.4 fL (36.4-46.3); Red Blood Count 4.85 M/uL (4.7-6.1); White Blood Count 14.41 K/uL (4.8-10.8)
[2020-06-11 17:48] LABS: Mean Corpuscular Hgb Conc 33.8 g/dL (32-36)
[2020-06-11 18:00] LABS: Albumin Level 3.4 gm/dl (3.4-5.0); BUN Creatinine Ratio 10.9 (10-20); Calcium 9.3 mg/dl (8.5-10.1); Creatinine Clr Calc Pharmacy 46.9 ml/min; Est GFR (African American) 47.7; Est GFR (Non-African American) 41.2; Potassium 4.3 mmol/L (3.5-5.1)
[2020-06-11 18:03] LABS: Albumin Globulin Ratio 1.1 (0.9-2); Bilirubin,Total 0.7 mg/dl (0.2-1); Globulin 3.2 gm/dl (2.5-4.0); Total Protein 6.6 gm/dl (6.4-8.2)
[2020-06-11 18:24] LABS: Magnesium 1.8 mg/dl (1.8-2.4); Phosphorus 2.6 mg/dl (2.5-4.9)
[2020-06-11] MEDS ORDERED: SODIUM CHLORIDE 0.9% 1000ML 500 ML IV ONE (18:33)
[2020-06-11] MEDS ORDERED: GLUCAGON FOR INJ 1 MG VIAL SQ PRN (18:39)
[2020-06-11] MEDS ORDERED: GLUCOSE 40% GEL 15 GM TUBE PO PRN (18:39)
[2020-06-11] MEDS ORDERED: CARBOHYDRATES FOR HYPOGLYCEMIA PO PRN (18:39)
[2020-06-11] MEDS ORDERED: GLUCOSE 10 TABS/TUBE PO PRN (18:39)
[2020-06-11] MEDS ORDERED: DEXTROSE 50% 50 ML SYRINGE IV PRN (18:39)
[2020-06-11] MEDS: ceFAZolin 2000MG 2,000 MG/15 ML SYR IV SCH (19:19)
[2020-06-11] MEDS: DOCUSATE SODIUM/SENNA 50/8.6MG TAB PO SCH (21:02)
[2020-06-12] MEDS: ceFAZolin 2000MG 2,000 MG/15 ML SYR IV SCH (03:06)
[2020-06-12] MEDS: POLYETHYLENE (MIRALAX) 17 GM PACK PO SCH ×3 (03:07→18:15)
[2020-06-12 04:54] LABS: Hematocrit (blood only) 37.1 % (42-52); Hemoglobin 12.5 g/dL (14.0-18.0); Immature Granulocytes # (auto) 0.03 K/uL (0.00-0.02); Immature Granulocytes % (auto) 0.2 %; Lymphocytes # (auto) 0.92 K/uL (1.2-3.4); Lymphocytes % (auto) 7.6 %; Mean Corpuscular Hemoglobin 29.1 pg (25-34); Mean Corpuscular Hgb Conc 33.7 g/dL (32-36); Mean Corpuscular Volume 86.3 fL (80-100); Mean Platelet Volume 9.8 fL (7.4-10.4); Monocytes # (auto) 0.88 K/uL (0.11-0.59); Monocytes % (auto) 7.3 %; Neutrophils # (auto) 10.28 K/uL (1.4-6.5); Neutrophils % (auto) 84.9 %; Platelet Count 198 K/uL (130-400); White Blood Count 12.11 K/uL (4.8-10.8)
[2020-06-12 17:16] LABS: BUN Creatinine Ratio 11.8 (10-20); Calcium 8.6 mg/dl (8.5-10.1); Creatinine Clr Calc Pharmacy 52.8 ml/min; Est GFR (Non-African American) 47.4; Potassium 4.1 mmol/L (3.5-5.1)
[2020-06-12] MEDS ORDERED: COUGH DROP (SUGAR FREE) LOZ 24 LOZ/1 BOX BUCCAL PRN (17:37)
--- NOTE | 2020-06-12 20:16 | Hospitalist Progress Note ---
Date of Service June 12, 2020 Assessment & Plan (1) Lumbar disc herniation: (2) Cauda equina syndrome not affecting bladder: Lumbar MRI showed showed large disc herniation L3-4 with severe central canal stenosis tethering of the roots of the cauda equina S/P day#1 lumbar decompression with bilateral medial facetectomies and foraminotomies L2-3 L3-4. #2 posterior spinal fusion L3-4. #3 placement posterior instrumentation L3-4 per #4 interbody fusion L3-4. #5 placement peek cage 13 x 26 mm at L3-4. #6 placement locally harvested morselized autograft in the posterior lateral gutters. #7 placement infuse collagen sponge bone master graft in the posterior lateral gutters and ostial amp interbody space." No postop complication Pain control as per ortho Continue PT/OT eval Continue monitor H/H Incentive spirometry Fall precaution Continue monitor closely (3) Tachycardia with hypertension: Possible related to pain Denies any chest pain Received IVF Continue monitor (4) HTN (hypertension): BP on EPIC has been between 130s-170s consistently Pt said that he was starting on Lisinopril in the past that caused him to develop cough and was discontinued He is very reluctant to start on BP med. He said that he continue to use naturel remedy for his BP will add IV hydralazine prn while in the hospital Continue monitor BP (5) CKD (chronic kidney disease), stage III: Creatinine 1.4 today, baseline creatinine 1.3 Continue avoid nephrotoxic agents Continue monitor BMP (6) DVT prophylaxis: SCD/TEDS as per ortho Disposition Discharge as per ortho Thank you for this consultation. We will follow the patient with you during their hospital stay. You can reach a member of the [facility] Hospitalist Team 29/01 via pager @ [phone]. Admission and Anticipated Discharge Date Admission Date: June 11, 2020 Subjective Pt was seen and examined Lying in bed with no distress Pt said that pain is tolerable He said that he walked in the hallway this morning Denies any chest pain, palpitation, dizziness and SOB Physical Exam Physical Exam: General- No acute distress Head- atraumatic Eyes- PERRL, EOMI, ENT- oropharynx clear Neck- supple, no JVD Lungs- clear to auscultation Heart- regular rhythm; no murmur Abdomen- normal bowel sounds, soft, nontender Extremities- no calf tenderness Neuro- alert, oriented x 3; PERRL, EOMI; no facial palsy; no dysarthria Skin- warm & dry
[2020-06-12] MEDS: DOCUSATE SODIUM/SENNA 50/8.6MG TAB PO SCH (20:56)
[2020-06-12] MEDS: oxyCODONE HCL IR 5 MG TAB (IMMEDIATE RELEASE) PO PRN (20:58)
[2020-06-13] MEDS: POLYETHYLENE (MIRALAX) 17 GM PACK PO SCH ×4 (00:02→17:25)
[2020-06-13] MEDS ORDERED: CHLORASEPTIC 1.4% SOLN 180 ML BTL MT PRN (00:25)
[2020-06-13 06:08] LABS: Estimated Average Glucose 114 mg/dl; Hemoglobin A1C 5.6 % (4.5-5.6)
[2020-06-13 06:43] LABS: Hematocrit (blood only) 32.4 % (42-52); Hemoglobin 10.6 g/dL (14.0-18.0); Mean Corpuscular Hgb Conc 32.7 g/dL (32-36); Mean Corpuscular Volume 88.8 fL (80-100); Mean Platelet Volume 9.6 fL (7.4-10.4); Platelet Count 161 K/uL (130-400); RDW Coefficient of Variation 13.3 % (11.5-14.5); RDW Standard Deviation 43.4 fL (36.4-46.3); Red Blood Count 3.65 M/uL (4.7-6.1); White Blood Count 9.93 K/uL (4.8-10.8)
[2020-06-13 07:12] LABS: BUN Creatinine Ratio 17.3 (10-20); Calcium 8.1 mg/dl (8.5-10.1); Creatinine Clr Calc Pharmacy 67.1 ml/min; Est GFR (African American) 73.5; Est GFR (Non-African American) 63.4
--- NOTE | 2020-06-13 10:34 | Electrocardiogram Report ---
Test Reason : Blood Pressure : / mmHG Vent. Rate : 112 BPM Atrial Rate : 112 BPM P-R Int : 172 ms QRS Dur : 090 ms QT Int : 324 ms P-R-T Axes : 054 -12 040 degrees QTc Int : 442 ms Sinus tachycardia Inferior infarct (cited on or before 11-JUN-2020) Poor R wave progression, consider anterior IN vs. lead placement vs. LVH Abnormal ECG When compared with ECG of 11-JUN-2020 08:12, Vent. rate has increased BY 46 BPM Questionable change in initial forces of Inferior leads Confirmed by Mp Beck ([id number]) on 06/13/2020 10:33:49 AM Referred By: REFERRED SELF Confirmed By:Mp Beck
--- NOTE | 2020-06-13 11:20 | Orthopedic Progress Note ---
Date of Service June 13, 2020 Assessment & Plan (1) Cauda equina syndrome not affecting bladder: Admission and Anticipated Discharge Date Admission Date: June 11, 2020 At this time we will maintain the COOKIE drain until the a.m. Continue to work with physical therapy and possible discharge home tomorrow. Subjective Patient's back pain is controlled leg symptoms markedly improved. He did have an episode that appeared to be a vasovagal or this morning where he passed out sitting in chair and vomited. He feels somewhat improved at this time. He still not ambulated this morning. Physical Exam Physical Exam: On exam is alert and oriented. Is excellent strength testing still some modest deficit to the right dorsiflexion Results & Data ([facility]) Vital Signs (Past 12 Hours) Vital Signs Temp Pulse Resp BP Pulse Ox 06/13/20 10:36 80 18 159/68 H 92 06/13/20 09:58 37.1 C 80 16 170/78 H 92 06/13/20 07:38 37.4 C 95 H 16 169/72 H 96
--- NOTE | 2020-06-13 11:46 | Electrocardiogram Report ---
Test Reason : Blood Pressure : / mmHG Vent. Rate : 090 BPM Atrial Rate : 090 BPM P-R Int : 156 ms QRS Dur : 088 ms QT Int : 334 ms P-R-T Axes : 068 -14 069 degrees QTc Int : 408 ms Normal sinus rhythm Inferior infarct (cited on or before 11-JUN-2020) Abnormal ECG When compared with ECG of 11-JUN-2020 17:40, Minimal criteria for Anterior infarct are no longer Present Confirmed by Mp Beck ([id number]) on 06/13/2020 11:45:33 AM Referred By: REFERRED SELF Confirmed By:Mp Beck
[2020-06-13] MEDS: oxyCODONE HCL IR 5 MG TAB (IMMEDIATE RELEASE) PO PRN (15:29)
--- NOTE | 2020-06-13 17:05 | Hospitalist Progress Note ---
Date of Service June 13, 2020 Assessment & Plan (1) Lumbar disc herniation: (2) Cauda equina syndrome not affecting bladder: Lumbar MRI showed showed large disc herniation L3-4 with severe central canal stenosis tethering of the roots of the cauda equina S/P day#2 lumbar decompression with bilateral medial facetectomies and foraminotomies L2-3 L3-4. #2 posterior spinal fusion L3-4. #3 placement posterior instrumentation L3-4 per #4 interbody fusion L3-4. #5 placement peek cage 13 x 26 mm at L3-4. #6 placement locally harvested morselized autograft in the posterior lateral gutters. #7 placement infuse collagen sponge bone master graft in the posterior lateral gutters and ostial amp interbody space." No postop complication Pain control as per ortho Continue PT/OT eval Continue monitor H/H Incentive spirometry Fall precaution Continue monitor closely (3) Tachycardia with hypertension: Possible related to pain Denies any chest pain Received IVF Continue monitor (4) HTN (hypertension): BP on EPIC has been between 130s-170s consistently Pt said that he was starting on Lisinopril in the past that caused him to develop cough and was discontinued He is very reluctant to start on BP med. He said that he continue to use naturel remedy for his BP will add IV hydralazine prn while in the hospital Continue monitor BP (5) Syncopal episodes: Possible related to vasovagal EKG showed no acute ischemic changes Continue monitor Fall precaution (6) CKD (chronic kidney disease), stage III: Creatinine improved from 1.4 to 1.1 today, baseline creatinine 1.3 Continue avoid nephrotoxic agents Continue monitor BMP (7) DVT prophylaxis: SCD/TEDS as per ortho Disposition Discharge as per ortho Thank you for this consultation. We will follow the patient with you during their hospital stay. You can reach a member of the [facility] Hospitalist Team 29/01 via pager @ [phone]. Admission and Anticipated Discharge Date Admission Date: June 11, 2020 Subjective Pt was seen and examined Lying in bed feeling a little nausea Pt had an episode of syncope after coming back from walking with therapy Denies any chest pain, palpitation, dizziness and SOB Physical Exam Physical Exam: General- No acute distress Head- atraumatic Eyes- PERRL, EOMI, ENT- oropharynx clear Neck- supple, no JVD Lungs- clear to auscultation Heart- regular rhythm; no murmur Abdomen- normal bowel sounds, soft, nontender Extremities- no calf tenderness Neuro- alert, oriented x 3; PERRL, EOMI; no facial palsy; no dysarthria Skin- warm & dry Results & Data Results & Data ([facility]) Vital Signs (Past 12 Hours) Vital Signs Temp Pulse Resp BP Pulse Ox 06/13/20 14:58 37.1 C 92 H 16 176/79 H 95 06/13/20 10:36 80 18 159/68 H 92 06/13/20 09:58 37.1 C 80 16 170/78 H 92 06/13/20 07:38 37.4 C 95 H 16 169/72 H 96
[2020-06-13] MEDS: DOCUSATE SODIUM/SENNA 50/8.6MG TAB PO SCH (20:23)
[2020-06-14] MEDS: POLYETHYLENE (MIRALAX) 17 GM PACK PO SCH ×2 (00:41→06:32)
--- NOTE | 2020-06-14 11:38 | Hospitalist Progress Note ---
Date of Service June 14, 2020 Assessment & Plan (1) Lumbar disc herniation: (2) Cauda equina syndrome not affecting bladder: Lumbar MRI showed showed large disc herniation L3-4 with severe central canal stenosis tethering of the roots of the cauda equina S/P day#3 lumbar decompression with bilateral medial facetectomies and foraminotomies L2-3 L3-4. #2 posterior spinal fusion L3-4. #3 placement posterior instrumentation L3-4 per #4 interbody fusion L3-4. #5 placement peek cage 13 x 26 mm at L3-4. #6 placement locally harvested morselized autograft in the posterior lateral gutters. #7 placement infuse collagen sponge bone master graft in the posterior lateral gutters and ostial amp interbody space." No postop complication Pain control as per ortho Continue PT/OT eval Continue monitor H/H Incentive spirometry Fall precaution Continue monitor closely Follow up with ortho outpatient (3) Tachycardia with hypertension: Possible related to pain Denies any chest pain Received IVF Asymptomatic (4) HTN (hypertension): BP on EPIC has been between 130s-170s consistently Pt said that he was starting on Lisinopril in the past that caused him to develop cough and was discontinued He is very reluctant to start on BP med. He said that he continue to use naturel remedy for his BP Not interested to start on any PO BP med. He said that he would follow up with his PCP Advised him to continue monitor his BP (5) Syncopal episodes: Possible related to vasovagal EKG showed no acute ischemic changes Continue monitor Fall precaution resoloved (6) CKD (chronic kidney disease), stage III: AMANDA on CKD stage 3 Creatinine improved from 1.4 to 1.1 today, baseline creatinine 1.3 Continue avoid nephrotoxic agents Continue monitor BMP resolved (7) Acute blood loss anemia: Due to Post op Hgb dropped to 10 Continue monitor CBC (8) DVT prophylaxis: SCD/TEDS as per ortho Disposition Discharge as per ortho Thank you for this consultation. We will follow the patient with you during their hospital stay. You [facility] via pager @ [phone]. Admission and Anticipated Discharge Date Admission Date: June 11, 2020 Subjective Pt was seen and examined for follow up syncopal episode Pt said that he feels fine He said that he walked with therapy today with no problem he does not want to start on any medication for blood pressure I offered him that i would schedule appt with his PCP for him, but he declined and said that he would call to schedule for the appointment with his PCP He already got dressed to be discharge today Denies any chest pain, palpitation, dizziness and SOB Physical Exam Physical Exam: General- No acute distress Head- atraumatic Eyes- PERRL, EOMI, ENT- oropharynx clear Neck- supple, no JVD Lungs- clear to auscultation Heart- regular rhythm; no murmur Abdomen- normal bowel sounds, soft, nontender Extremities- no calf tenderness Neuro- alert, oriented x 3; PERRL, EOMI; no facial palsy; no dysarthria Skin- warm & dry Results & Data Results & Data ([facility]) Vital Signs (Past 12 Hours) Vital Signs Temp Pulse Pulse Resp BP BP Pulse Ox 06/14/20 10:16 37.4 C 120 H 95 H 16 148/80 H 185/99 H 93 06/14/20 07:38 37.4 C 95 H 16 148/80 H 93 06/14/20 00:37 37.4 C 93 H 14 132/66 93
--- NOTE | 2020-06-14 12:42 | Discharge Summary ---
Date of Service June 14, 2020 Admission HPI Per Admitting Provider This is a 74-year-old male that presents with marked decline in status over the past 24 hours. He describes a history of back pain couple weeks ago had undergone some oral medications and hydrocodone to control symptoms but over the past 24 hours had a marked decline in status with the inability to ambulate. He had numbness extending down the buttocks thighs to his feet. Involve the perineal area. He was unable to ambulate and came to the emergency room. MRI obtained emergently demonstrates evidence of vascular discoloration at the level L2-L3. Of note for imaging purposes and calling L5 L5 is L5 is partially sacralized. This does demonstrate severe canal compromise. Principal Diagnosis Lumbar spinal stenosis with cauda equina syndrome Discharge Data Allergies Allergy/AdvReac Type Severity Reaction Status Date / Time No Known Allergies Allergy Unknown Verified 06/11/20 03:55 Consultations 06/11/20 15:04 Consult Case Management - Discharge Planning Routine Consult Hospitalist Routine Procedures Performed Operation Date: 06/11/20 14:35 Actual Procedures p Lumbar Decompression Fusion L2-L3 - Rodney Engle DO Ordered Studies 06/11/20 04:04 MR lumbar spine wo con Urgent 06/11/20 10:30 FL fluoroscopy <1hr Routine FL lumbar spine 2-3V Routine Hospital Course (1) Cauda equina syndrome not affecting bladder: Patient was admitted emergently with symptoms of cauda equina syndrome underwent decompression fusion tolerated this well was taken to orthopedic floor postoperative. Postop day 1 his leg symptoms were improving strength deficits present but improving. He was tolerating physical therapy progressed to postop day #2 and on postop day #3 back pain controlled leg pain improved ambulating well COOKIE drain decreased properly. Subsequent discharge home. Discharge orders and instructions can be found the chart for further review. Total Time Total Time Spent Total Time Spent (In Minutes): 20 minutes Discharge Plan Discharge Items Patient Disposition: Home - Self-Care Reason For Visit: BACK PAIN Discharge Diagnosis: Lumbar cauda equina syndrome Activity: As commented below Non-emergency contact: Primary Care Provider Call non-emergency contact if: you have any medication questions Follow-up/Referrals: Rodney Engle DO [Surgeon] - 06/25/20 10:10 am Manjeet Crisostomo MD [Primary Care Provider] - Diet: Regular Addtl Attending Provider Instructions: ACTIVITY RECOMMENDATIONS: SELF CARE INSTRUCTIONS AFTER THORACIC/LUMBAR FUSIONS 1. You may walk to your tolerance. It is good exercise for your legs and back. Expect some back and intermittent leg aches and pains. 2. You may perform "counter-top" level activities (make a sandwich, doc with a project, etc.). 3. No bending or lifting of more than 10 pounds or back twisting of any nature (roll like a log when turning in bed). 4. You may ride in a car for 20-30 minutes at a time. No driving until after your first visit with your doctor. 5. Frequent changes of position and restricting sitting to 30 minutes at a time will help limit the amount of back spasms and stiffness you may experience. 6. You may discontinue the use of ambulatory aids (cane, crutches, etc.) once your strength and confidence allow. 7. You may human intelligence the shower and let water strike your incision when you arrive home at least once daily. Do not take a tub bath, sit in a hot tub or go into a swimming pool until after your first recheck in the office. SPECIAL CARE INSTRUCTIONS: VERY IMPORTANT TO READ AND REVIEW A. Your surgical incision has been closed with a cosmetic suture under the skin that will dissolve in about 6 weeks. In 14 days, you can use a pair of clean scissors and cut the suture that is left outside of the skin at the ends of your incision. 1. The small skin tapes can be removed 7 days after surgery if they have not fallen off by that point. 2. You may keep the wound open to air as much as possible to promote healing after post-op day number 5 unless told otherwise by your doctor. 3. If you think the wound looks like it is becoming infected (redness or worsening drainage) and/or you are experiencing fever, chill or worsening back pain and muscle spasms, contact the office so that we may evaluate you as soon as possible. B. Complications are uncommon, but please contact us if you have any signs or symptoms of: 1. wound infection (fever higher than 102.5 degrees F, redness, separation of wound, drainage, or increasing pain from the incision) 2. blood clots in legs (pain, swelling, redness and warmth in legs) 3. urinary tract infection (fever higher than 102.5 degrees F, burning upon urination or increased frequency of urination) 4. nerve problems (inability to walk on your toes or heels, numbness, loss of bowel or bladder control) 5. any other symptoms that concern you C. Please call the office at if you have any concerns or questions about your operation or recovery. D. No smoking! Smoking drastically decreases the chance of a solid fusion. E. Do not take any anti-inflammatory medications (Indocin, Advil, Motrin, Aspirin, Naprosyn, etc.) as these may inhibit the chance of a solid fusion. Tylenol is okay to take for pain. MANAGING PAIN AFTER SPINAL SURGERY 1. Narcotic medication is intended for short-term use and will be provided for surgical pain. Surgical pain usually lasts for a period of 4-6 weeks. Narcotic medication includes Percocet, Vicodin, Darvocet, Tylenol #3 or Lortab. 2. Longer-term pain is more appropriately treated with non-narcotic medication such as Tylenol ES. 3. Muscle spasm is not appropriately treated with narcotics. Muscle relaxers such as Soma, Flexeril or Skelaxin can be used along with Tylenol ES. 4. Remember that we all live with some "aches and pains". This is not unusual or uncommon after an injury or as we get older. a. Back pain is expected and may include muscle spasms for [address] surgery[address] The pain should gradually improve. If the pain worsens for no apparent reason, please contact the office. b. Intermittent leg pain may also be experienced and should not be concerned about unless it worsens for no apparent reason. If so, please contact the office. 5. We will provide appropriate medication within the normal guidelines of their prescribed use. We will also be very cautious and aware of potential abuse and extended duration of patients' medication needs. a. Pain medications are for your comfort and to assist with sleep and rest so that the tissue can heal. They are not provided in order to return to normal activity and should not be used through the day. To do so or worsening pain at night can result from ongoing tissue damage and development of tolerance to the prescribed medicine. 6. Please allow 2-3 days to process refills. Prescriptions will not be mailed but must be picked up at the office. FOLLOW UP VISIT: Keep your scheduled follow-up appointment. Any questions, please call the office at . Pending Studies at Discharge: No Stand-Alone Forms: My [facility], Opioid Pain Management, Smoking Cessation Medications and DC Order Prescriptions: New tramadol 50 mg tablet 50 mg PO Q6H PRN (Reason: pain, moderate) Qty: 20 RF: 0 oxycodone 5 mg tablet 5 mg PO Q6H PRN (Reason: pain, severe) Qty: 20 RF: 0 Continued hydrocodone-acetaminophen 5-325 mg tablet 1 tab PO Q6 PRN (Reason: Pain) RF: 0 tramadol 50 mg tablet 50 mg PO Q8 PRN (Reason: Pain) RF: 0 Discharge Orders: Discharge Order (Routine); Ordered 06/14/20 Ordered By: Rodney Keller/Other Patient Handouts: DVT Post Op Prevention Admission Data Admit Date/Time: 06/11/20 13:05 Attending Provider: Rodney Engle Admit Provider: Rodney Engle Primary Care Provider: Manjeet Crisostomo Other Providers: Julio C Gavin ; Moshe Cuellar Other Interventions: Discharge Summary Assessment (RN) Last Done: 06/14/20 10:16
== END 2020-06-14 12:43 | disposition home or self-care (01) | DRG 454 ==
LOC: ED 03:24 → ASU 08:25 → 3N 13:05 → SUATTDRO 13:05